=== PATIENT | female | born 1985 | race Caucasian/White ===

== ENCOUNTER 2017-11-30 20:52 | Emergency (ER) ==
[2017-11-30 21:08] VITALS: BP 146/98; TEMP 100.2; BMI 37.5
[2017-11-30] MEDS ORDERED: DECADRON 4 MG/ML SDV IM STA (21:12)
[2017-11-30] MEDS ORDERED: BENADRYL IM STA (21:12)
--- NOTE | 2017-11-30 21:21 | ED.PDOC ---
General ED Provider: Dr. TED KOEHLER-ER Chief Complaint: Allergic Reaction Stated Complaint: im having an allergic reactioni---juan jose had them before Time Seen by Physician: 21:20 Mode of Arrival: Walk-In Information Source: Patient Exam Limitations: No limitations Nursing and Triage Documentation Reviewed and Agree: Yes Does patient meet sepsis criteria?: No System Inflammatory Response Syndrome: Not Applicable Sepsis Protocol: For patient's 13 years and over: Temp is 96.8 and below OR 101 and greater Pulse >90 BPM Resp >20/minute Acutely Altered Mental Status Are patient's symptoms suggestive of a new infection, such as: -Pneumonia -Skin, Soft Tissue -Endocarditis -UTI -Bone, Joint Infection -Implantable Device -Acute Abdominal Infection -Wound Infection -Meningitis -Blood Stream Catheter Infection -Unknown Skin Complaint Exam - Skin Rash/Itching Complaint/Exam Onset/Duration: 45 min Symptoms Are: Still present Initial Severity: Mild Current Severity: Moderate Location: face, chest arms and legs Potential Exposures: Reports: Other Aggravating: Reports: None Alleviating: Reports: None Associated Signs and Symptoms: Denies: Difficulty breathing, Fever, Chills Skin Findings: Present: Urticaria, Lesions Differential Diagnoses: Allergic Reaction Review of Systems - Review Of Systems Constitutional: Reports: No symptoms Eyes: Reports: No symptoms Ears, Nose, Mouth, Throat: Reports: No symptoms Respiratory: Reports: No symptoms Cardiac: Reports: No symptoms GI: Reports: No symptoms : Reports: No symptoms Musculoskeletal: Reports: No symptoms Skin: Reports: Rash Neurological: Reports: No symptoms Endocrine: Reports: No symptoms Hematologic/Lymphatic: Reports: No symptoms All Other Systems: Reviewed and Negative Past Medical History - Past Medical History Previously Healthy: Yes Endocrine: Reports: Unknown Cardiovascular: Reports: Unknown Respiratory: Reports: Unknown Hematological: Reports: Unknown Gastrointestinal: Reports: Unknown Genitourinary: Reports: Unknown Neuro/Psych: Reports: Unknown Musculoskeletal: Reports: Unknown Cancer: Reports: Unknown Last Menstrual Period: 11/17/17 - Surgical History General Surgical History: Reports: Unknown - Family History Family History: Reports: Unknown - Social History Smoking Status: Never smoker Hx Substance Use: No Alcohol Screening: None - Immunizations Tetanus Shot up to Date: Yes Physical Exam - Physical Exam Appearance: Well-appearing, No pain distress, Well-nourished Eyes: RAULITO, EOMI, Conjunctiva clear ENT: Ears normal, Nose normal, Oropharynx normal Neck: Supple Respiratory: Airway patent, Breath sounds clear, Breath sounds equal, Respirations nonlabored Cardiovascular: RRR, Pulses normal, No rub, No murmur GI/: Soft Musculoskeletal: Normal strength, ROM intact, No edema, No calf tenderness Skin: Warm, Dry, Normal color Neurological: Sensation intact, Motor intact, Reflexes intact, Cranial nerves intact, Alert, Oriented Psychiatric: Affect appropriate, Mood appropriate Re-Evaluation - Re-Evaluation Time of Re-Evaluation: 21:54 Status: Improved Vital Signs Stable: Yes Pain Level: 0 Appearance: NAD Lungs: Clear Skin: Warm and Dry Neuro: Alert and Oriented X3 CV: RRR Critical Care Note - Critical Care Note Total Time (mins): 0 Course - Course Orders, Labs, Meds: Orders Category Date Time Status Dexamethasone 4 mg/ml Inj [Decadron 4 mg/ml Sdv] MEDS 11/30/17 21:12 Discontinued 8 mg IM ONCE STA Diphenhydramine Inj [Benadryl] MEDS 11/30/17 21:12 Discontinued 50 mg IM ONCE STA Medications Discontinued Medications Generic Name Dose Route Start Last Admin Trade Name Freq PRN Reason Stop Dose Admin Dexamethasone Sodium Phosphate 8 mg 11/30/17 21:12 11/30/17 21:20 Decadron 4 Mg/Ml Sdv IM 11/30/17 21:13 8 mg ONCE STA Administration Diphenhydramine HCl 50 mg 11/30/17 21:12 11/30/17 21:19 Benadryl IM 11/30/17 21:13 50 mg ONCE STA Administration Vital Signs: Temp Pulse Resp BP Pulse Ox 11/30/17 21:00 100.2 F H 120 H 20 146/98 H 97 Departure - Departure Time of Disposition: 21:54 Disposition: HOME SELF-CARE Discharge Problem: Pruritic rash Instructions: Urticaria (ED) Condition: Good Pt referred to PMD for follow-up: Yes IPMP verified?: No Additional Instructions: medrol dose pack---zyrtec 10mg #7--zantac 150mg bid #10--epi pen--return prn Allergies/Adverse Reactions: Allergies Penicillins Adverse Reaction (Verified 03/31/13 07:12) Home Medications: Ambulatory Orders 1 [No Reported Medications] 11/30/17 Disposition Discussed With: Patient
== END 2017-11-30 22:10 | disposition home or self-care (01) ==
LOC: ED 20:52
DX: R21 Rash and other nonspecific skin eruption (principal); L29.9 Pruritus, unspecified
CPT/HCPCS: 96372; 99283